=== PATIENT | female | born 1985 | race Caucasian/White ===

== ENCOUNTER → 2021-03-08 08:28 | Outpatient (CLI) | payer OTHER, SELFPAY ==
[2021-03-08 08:55] LABS: Appearance Urine UA CLEAR; Bilirubin Urine UA NEGATIVE (NEGATIVE); Color Urine UA YELLOW; Glucose Urine UA NEGATIVE (Negative); Ketones Urine UA NEGATIVE (NEGATIVE); Leukocyte Esterase Urine UA 1+ (NEGATIVE); Nitrite Urine UA NEGATIVE (Negative); Occult Blood Urine UA NEGATIVE (Negative); Protein Urine UA NEGATIVE (Negative); Specific Gravity Urine UA 1.015 (1.000-1.035); Urobilinogen Urine UA 0.2 E.U./dL (0.2)
[2021-03-08 09:13] LABS: Add Manual Diff / Slide Review NO; Basophils Absolute Auto 100 /uL (0-100); Basophils Percent Auto 0.8 % (0-2); Eosinophils Absolute Auto 0 /uL (0-450); Eosinophils Percent Auto 0.8 % (2-4); Hematocrit 36.7 % (36-46); Hemoglobin 12.4 g/dL (12.0-16.0); Lymphocytes Absolute Auto 1900 /uL (1100-4500); Lymphocytes Percent Auto 32.4 % (25-40); Mean Corpuscular HGB Conc 33.8 % (30-36); Mean Corpuscular Hemoglobin 31.3 PG (26-34); Mean Corpuscular Volume 92.7 fL (80-100); Monocytes Absolute Auto 400 /uL (0-900); Monocytes Percent Auto 6.2 % (3-14); Neutrophils Absolute Auto 3600 /uL (1500-7000); Neutrophils Percent Auto 59.8 % (50-75); Platelet Count 284 X10^3/uL (150-400); Red Blood Cell Count 3.96 X10^6/uL (4.0-5.2); Red Cell Distribution Width 11.9 % (11.6-14.8); White Blood Cell Count 5.9 X10^3/uL (4.5-11.0)
[2021-03-08 09:19] LABS: RBC Urine None Seen (0-5/HPF); Squamous Epithelial Cell Urine 10-30 /HPF (0-5/HPF); WBC Urine 0-1/HPF (0-5/HPF)
[2021-03-08 09:20] LABS: Bacteria Urine None Seen
[2021-03-09 06:11] LABS: Varicella IgG Antibody 1009 index (Immune >165)
[2021-03-09 06:36] LABS: RPR Screen Non Reactive (Non Reactive)
[2021-03-09 15:54] LABS: Hepatitis B Surface Antigen NEGATIVE s/c (NEGATIVE); Rubella Antibody IgG 91.1 IU/mL (>15)
[2021-03-09 16:11] LABS: HIV 1 & 2 Ab/Ag 4th Gen Combo NEGATIVE (NEGATIVE); Hep C Virus Ab w/Reflex Quant NEGATIVE s/c (NEGATIVE)
== END ==
PROVIDERS: PCP Physician Assistant; Referring Provider Obstetrics & Gynecology; Visit Provider Obstetrics & Gynecology
DX: O09.521 Supervision of elderly multigravida, first trimester (principal); Z36.0 Encounter for antenatal screening for chromosomal anomalies
CPT/HCPCS: 80055; 81003; 81015; 81420; 86787; 86803; 86850; 86900; 86901; 87086; 87389

== ENCOUNTER → 2021-04-19 10:45 | Outpatient (CLI) | payer OTHER, SELFPAY ==
[2021-04-22 21:23] LABS: AFP Value 25.5 ng/mL (.); Gest Age on Col Date 17.7 weeks (.); Insulin Dep Diabetes No (.); OSBR Risk 1IN 10000 (.); Results Report (.); Test Results *Screen Negative* (.)
== END ==
PROVIDERS: PCP Physician Assistant; Visit Provider Obstetrics & Gynecology
DX: Z34.02 Encounter for supervision of normal first pregnancy, second trimester (principal); Z3A.17 17 weeks gestation of pregnancy
CPT/HCPCS: 82105

== ENCOUNTER → 2021-05-15 10:47 | Outpatient (CLI) | payer OTHER, SELFPAY ==
--- NOTE | 2021-05-15 10:48 | DI.US.S_ITS ---
PROCEDURE: US OB >= 14 WEEKS FETUS INDICATIONS: ANATOMY OUTSIDE/PRIOR DATING DATA: Last menstrual period (LMP): Unknown LMP-based estimated date of delivery (MAME): Unknown. First dating scan (date and location): 02/16/2021, physician's office. Estimated date of delivery (MAME) from first dating scan: 09/25/2021. The calculations are made using the ultrasound MAME of 02/16/2021. TECHNIQUE: Real-time scanning was performed of the fetus, with image documentation and biometric measurements. Endovaginal scanning: Not performed COMPARISON: None. FINDINGS: General: A single living intrauterine gestation is present. Presentation: Vertex. Placenta: Placental position is fundal , without previa. Amniotic fluid index: 23.4 cm, normal range is 5-24 cm. heart rate: 155 beats per minute. Maternal cervical canal: 3.5 cm long. Normal lower limit is 2.5 cm. biometrics: Biparietal diameter: 5.3 cm, 22 weeks 0 days Head circumference: 18.3 cm, 20 weeks 5 days Abdominal circumference: 17.2 cm, 22 weeks 1 day Femur length: 3.5 cm, 21 weeks 0 days Clinically estimated gestational age: 21 weeks 0 days Composite gestational age from present scan: 21 weeks 3 days Estimated weight and percentile: 431 g, 74th percentile Anatomic survey: Neuro: Ventricles are non-dilated at less than 10 mm. Cisterna magna is normal at 3-11 mm. Cerebellum is normal in size and morphology. Nuchal skin fold: Normal at less than 6 mm between 14-21 weeks gestational age. Face: Nose and lips, facial profile are not well seen Spine: No evidence for spina bifida. Heart: 4-chambered heart is present, with normal ventricular outflow tracts. Diaphragm: Diaphragm is intact. Stomach: Left-sided stomach is present. Kidneys: No hydronephrosis. Normal is less than 5 mm in 2nd trimester, less than 7 mm in 3rd trimester. Cord: 3-vessel cord has orthotopic insertion. Bladder: Normal in size. Extremities: All 4 extremities identified. IMPRESSION: 1. Living 2nd trimester intrauterine . Current ultrasound age is 3 days greater than clinical age based on initial 1st trimester OB ultrasound. 2. profile and face and nose and lips are not well seen secondary to lie. 3. Top normal TERRY. Comment: Suggest patient return for repeat imaging of the profile and face and nose and lips. We strive to produce accurate, complete, and clear reports of imaging services. To assist us in improving patient care, this report was composed using standard report templates and voice recognition software. Therefore, it may contain abnormal punctuation, insertions and/or omissions. Occasional wrong-word or sound-alike substitutions may occur. Though we review the report and make efforts to correct it, we do recommend that the report be read carefully in proper context to recognize any text inaccuracies. Dictated by: Cholo Barrett M.D. on 05/15/2021 at 16:45 Approved by: Cholo Barrett M.D. on 05/15/2021 at 16:49
== END ==
PROVIDERS: PCP Physician Assistant; Referring Provider Obstetrics & Gynecology; Visit Provider Obstetrics & Gynecology
DX: Z34.02 Encounter for supervision of normal first pregnancy, second trimester (principal); Z3A.21 21 weeks gestation of pregnancy
CPT/HCPCS: 76811

== ENCOUNTER → 2021-09-11 12:37 | Outpatient (CLI) | payer OTHER, SELFPAY ==
[2021-09-14 02:57] LABS: Chlamydia trachomatis NAA Negative (Negative); Neisseria gonorrhoeae NAA Negative (Negative)
== END ==
PROVIDERS: PCP Physician Assistant; Referring Provider Family Medicine; Visit Provider Family Medicine
DX: O09.519 Supervision of elderly primigravida, unspecified trimester (principal)
CPT/HCPCS: 87491; 87591

== ENCOUNTER → 2021-12-27 11:56 | Outpatient (CLI) | payer OTHER, SELFPAY ==
[2021-12-27 20:47] LABS: Add Manual Diff / Slide Review NO; Basophils Absolute Auto 0 /uL (0-100); Basophils Percent Auto 0.7 % (0-2); Eosinophils Absolute Auto 100 /uL (0-450); Eosinophils Percent Auto 2.8 % (2-4); Hematocrit 36.4 % (36-46); Hemoglobin 12.5 g/dL (12.0-16.0); Lymphocytes Absolute Auto 2300 /uL (1100-4500); Lymphocytes Percent Auto 44.1 % (25-40); Mean Corpuscular HGB Conc 34.4 % (30-36); Mean Corpuscular Hemoglobin 30.9 PG (26-34); Mean Corpuscular Volume 89.6 fL (80-100); Monocytes Absolute Auto 400 /uL (0-900); Monocytes Percent Auto 6.8 % (3-14); Neutrophils Absolute Auto 2400 /uL (1500-7000); Neutrophils Percent Auto 45.6 % (50-75); Platelet Count 303 X10^3/uL (150-400); Red Blood Cell Count 4.07 X10^6/uL (4.0-5.2); Red Cell Distribution Width 12.7 % (11.6-14.8); White Blood Cell Count 5.2 X10^3/uL (4.5-11.0)
[2021-12-27 21:24] LABS: Ferritin 18 ng/mL (6-137)
[2021-12-27 22:59] LABS: HEMOLYSIS < 15 (0-50); Iron 126 ug/dL (37-170)
[2021-12-27 23:09] LABS: Percent Iron Saturation 37 % (15-50); Total Iron Binding Capacity 337 ug/dL (265-497); Transferrin 267 mg/dL (206-381)
[2021-12-27 23:31] LABS: TSH w/ Reflex to FT4 1.37 uIU/mL (0.47-4.68)
== END ==
PROVIDERS: PCP Physician Assistant; Visit Provider Physician Assistant
DX: R53.83 Other fatigue (principal)
CPT/HCPCS: 82728; 83540; 83550; 84443; 85025

== ENCOUNTER → 2022-01-09 11:32 | Outpatient (CLI) | payer OTHER, SELFPAY ==
--- NOTE | 2022-01-09 11:33 | DI.US.S_ITS ---
LIMITED ULTRASOUND OF RIGHT BREAST: 01/09/2022 CLINICAL: Palpable right breast lump. No prior exams were available for comparison. Real-time ultrasound of the right breast 6 o'clock region was performed. Hale scale images of the real-time examination were reviewed. No significant abnormalities were seen sonographically in the right breast. IMPRESSION: NEGATIVE There is no sonographic evidence of malignancy. There is no abnormality seen in the right breast to correspond with the palpable abnormality at 6 o'clock, however, clinical followup is recommended. Patient was offered further evaluation with diagnostic mammograms at the time of the ultrasound and declined. A 3 year screening mammogram is recommended. This exam was interpreted at Station ID: [id number]. Electronically Signed By: Joby do/janki:01/09/2022 12:13:24 letter sent: Clinical Evaluation Ultrasound BI-RADS: 1 Negative
== END ==
PROVIDERS: PCP Physician Assistant; Referring Provider Physician Assistant; Visit Provider Physician Assistant
DX: N63.10 Unspecified lump in the right breast, unspecified quadrant (principal)
CPT/HCPCS: 76642

== ENCOUNTER → 2023-07-03 10:51 | Outpatient (CLI) | payer OTHER, SELFPAY ==
[2023-07-03 20:32] LABS: Alanine Aminotransferase 21 IU/L (<35); Albumin 4.3 g/dL (3.5-5.0); Albumin Globulin Ratio 1.3 (1.0-2.8); Alkaline Phosphatase 58 U/L (38-126); Aspartate Aminotransferase 25 IU/L (14-36); BUN Creatinine Ratio 25.4 (6-22); Bilirubin Total 0.4 mg/dL (0.2-1.3); Blood Urea Nitrogen 16 mg/dL (7-17); Calcium 9.6 mg/dL (8.4-10.2); Carbon Dioxide 26 mmol/L (22-32); Chloride 101 mmol/L (98-107); Estimated Glomerular Filt Rate > 60 mL/min (>60); Globulin 3.2 g/dL (1.7-4.1); Glucose 81 mg/dL (70-100); HEMOLYSIS < 15 (0-50); Potassium 4.3 mmol/L (3.4-5.1); Sodium 136 mmol/L (137-145); Total Protein 7.5 g/dL (6.3-8.2)
[2023-07-03 20:34] LABS: Add Manual Diff / Slide Review NO; Basophils Absolute Auto 0 /uL (0-100); Eosinophils Absolute Auto 0 /uL (0-450); Eosinophils Percent Auto 0.6 % (2-4); Hematocrit 37.3 % (36-46); Hemoglobin 12.7 g/dL (12.0-16.0); Lymphocytes Absolute Auto 2200 /uL (1100-4500); Mean Corpuscular HGB Conc 34.1 % (30-36); Mean Corpuscular Volume 90.8 fL (80-100); Monocytes Absolute Auto 300 /uL (0-900); Monocytes Percent Auto 5.7 % (3-14); Neutrophils Absolute Auto 2400 /uL (1500-7000); Neutrophils Percent Auto 48.7 % (50-75); Platelet Count 305 X10^3/uL (150-400); Red Blood Cell Count 4.11 X10^6/uL (4.0-5.2); Red Cell Distribution Width 12.2 % (11.6-14.8)
[2023-07-03 20:50] LABS: Vitamin D 25 Hydroxy (D3) 44.1 ng/mL (30.0-100.0)
[2023-07-03 21:07] LABS: TSH w/ Reflex to FT4 0.94 uIU/mL (0.47-4.68)
[2023-07-03 21:21] LABS: Vitamin B12 683 pg/mL (239-931)
== END ==
PROVIDERS: PCP Physician Assistant; Visit Provider Physician Assistant
DX: Z31.89 Encounter for other procreative management (principal); L40.9 Psoriasis, unspecified; R53.83 Other fatigue
CPT/HCPCS: 80053; 82306; 82607; 84443; 85025

== ENCOUNTER → 2023-08-28 14:33 | Outpatient (CLI) | payer OTHER, SELFPAY ==
[2023-08-28 21:18] LABS: HCG Quantitative /Beta subunit 519.8 mIU/mL
== END ==
PROVIDERS: PCP Physician Assistant; Visit Provider Nurse Practitioner Adult Health
DX: O03.9 Complete or unspecified spontaneous abortion without complication (principal)
CPT/HCPCS: 84702

== ENCOUNTER 2023-08-29 18:16 | Emergency (ER) | payer OTHER, SELFPAY ==
[2023-08-29 18:29] VITALS: BP 126/67; PULSE 80; RESP 16; TEMP 37.4; O2SAT 97; BMI 25.1
--- NOTE | 2023-08-29 18:40 | DI.US.S_ITS ---
PROCEDURE: US PELVIC COMPLETE INDICATIONS: 5 DAYS POST SAB; POSSIBLE RPOC TECHNIQUE: Real-time scanning was performed of the pelvic organs, with image documentation. Additional endovaginal scanning was necessary due to incomplete visualization of the adnexal and endometrial structures by transabdominal scanning. COMPARISON: None. FINDINGS: Uterus: Uterus is anteverted and normal in size at 5.1 x 4.0 x 5.4 cm. The myometrium is homogeneous. The endometrium measures 8.0 mm combined thickness. There is a 1.3 x 0.7 x 1.3 cm mildly hypoechoic nonvascular solid mass in the endometrium which may represent a blood clot versus retained product of conception. There is a 1.1 x 1.4 x 1.8 cm right posterior intramural uterine fibroid. Moderate fluid-filled peristalsing bowel noted adjacent to the uterus. Ovaries: The right ovary measures 2.1 x 3.2 x 1.4 cm, with a calculated ovarian volume of 4.7 cc. The left ovary measures 2.9 x 1.8 x 1.1 cm, with a calculated ovarian volume of 3.1 cc. The ovaries have a normal sonographic appearance. Less than 12 follicles can be seen in each ovary. No adnexal masses are seen. Other: No pathologic free abdominal or pelvic fluid. IMPRESSION: 1. A 1.3 cm hypoechoic solid mass in the endometrium with minimal adjacent vascularity which may represent hemorrhagic products versus possible retained products of conception. Recommend continued clinical surveillance and follow-up imaging as indicated. 2. Otherwise, no acute abnormalities identified in the pelvis We strive to produce accurate, complete, and clear reports of imaging services. To assist us in improving patient care, this report was composed using standard report templates and voice recognition software. Therefore, it may contain abnormal punctuation, insertions and/or omissions. Occasional wrong-word or sound-alike substitutions may occur. Though we review the report and make efforts to correct it, we do recommend that the report be read carefully in proper context to recognize any text inaccuracies. Dictated by: Francois Mann M.D. on 08/29/2023 at 19:44 Approved by: Francois Mann M.D. on 08/29/2023 at 19:50
[2023-08-29 18:58] VITALS: PULSE 86; O2SAT 97
[2023-08-29 18:59] VITALS: BP 107/58; PULSE 79; O2SAT 97
[2023-08-29 19:00] VITALS: BP 110/59; PULSE 79; O2SAT 97
[2023-08-29 19:05] LABS: Add Manual Diff / Slide Review NO; Basophils Absolute Auto 0 /uL (0-100); Basophils Percent Auto 0.2 % (0-2); Eosinophils Absolute Auto 0 /uL (0-450); Eosinophils Percent Auto 0.7 % (2-4); Hematocrit 35.7 % (36-46); Hemoglobin 12.5 g/dL (12.0-16.0); Lymphocytes Absolute Auto 700 /uL (1100-4500); Lymphocytes Percent Auto 9.7 % (25-40); Mean Corpuscular Hemoglobin 31.7 PG (26-34); Mean Corpuscular Volume 90.6 fL (80-100); Monocytes Absolute Auto 600 /uL (0-900); Monocytes Percent Auto 8.8 % (3-14); Neutrophils Absolute Auto 5700 /uL (1500-7000); Neutrophils Percent Auto 80.6 % (50-75); Platelet Count 244 X10^3/uL (150-400); Red Blood Cell Count 3.94 X10^6/uL (4.0-5.2); Red Cell Distribution Width 12.3 % (11.6-14.8); White Blood Cell Count 7.1 X10^3/uL (4.5-11.0)
[2023-08-29 19:15] LABS: Alanine Aminotransferase 28 IU/L (<35); Albumin 4.2 g/dL (3.5-5.0); Albumin Globulin Ratio 1.2 (1.0-2.8); Alkaline Phosphatase 56 U/L (38-126); Aspartate Aminotransferase 31 IU/L (14-36); BUN Creatinine Ratio 9.8 (6-22); Bilirubin Total 0.5 mg/dL (0.2-1.3); Blood Urea Nitrogen 5 mg/dL (7-17); Calcium 8.1 mg/dL (8.4-10.2); Carbon Dioxide 19 mmol/L (22-32); Chloride 109 mmol/L (98-107); Estimated Glomerular Filt Rate > 60 mL/min (>60); Globulin 3.4 g/dL (1.7-4.1); Glucose 113 mg/dL (70-100); HEMOLYSIS < 15 (0-50); Potassium 3.2 mmol/L (3.4-5.1); Sodium 135 mmol/L (137-145); Total Protein 7.6 g/dL (6.3-8.2)
--- NOTE | 2023-08-29 19:25 | ED_ITS ---
HPI - Abdominal Pain General Chief Complaint: Abdominal Pain Stated Complaint: fever, recent miscarriage, abd pain Time Seen by Provider: 08/29/23 19:19 History of Present Illness HPI narrative: One week ago today she started some spotting and then heavy bleeding and passage of products of conception last Saturday. Quite a bit of cramping which resolved after the passage of material. She was about 8 weeks . 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 She went had that ultrasound was reassuring by her report. Subsequent to that over the past few days she has had copious watery diarrhea and fever. No nausea no vomiting and mild abdominal cramps which are diffuse. In speaking with her provider today with recurrent fever, it was felt that further evaluation was warranted. To make sure she does not have endometritis. Related Data Home Medications Medication Instructions Recorded Confirmed L.acidoph, paracasei,B. lactis 10 cell PO 02/08/21 08/12/23 billion cell capsule (Digestive Advantage Advanced Probiotic) prenat.vits,markie,[id number] 1 tab PO DAILY 02/08/21 08/12/23 blue-green algae (Spirulina) 500 mg PO 07/01/23 08/12/23 mg capsule choline 250 mg tablet mg PO 07/01/23 08/12/23 coenzyme Q10 100 mg capsule 100 mg PO DAILY 07/01/23 08/12/23 (CoQ-10) docosahexaenoic acid 200 mg mg PO 07/01/23 08/12/23 capsule ( DHA) liver extract tab PO 07/01/23 08/12/23 Allergies Allergy/AdvReac Type Severity Reaction Status Date / Time salicylic acid AdvReac Mild Rash as a Verified 08/12/23 11:44 Teenager Patient History Medical History (Updated 08/29/23 @ 19:45 by Barrett Lovett MD) Spontaneous miscarriage Wears glasses Carpal tunnel syndrome (~2001) Chicken pox (~1988) Abnormal Pap smear of cervix Hx of migraines (~1995) Psoriasis (~2002) AMA (advanced maternal age) primigravida 35+ Low back pain Anxiety (~2002) Surgical History (Updated 02/08/21 @ 11:47 by Kamini Rubalcava RN) Hx of colposcopy with cervical biopsy [place] teeth extracted (~2003) Family History (Updated 02/18/21 @ 22:13 by Eli Ramirez) Father Depression Hypertension Hx TIA/stroke w/o resid H/O Spinal surgery Encounter for cholecystectomy Retinal tear Mental health problem Mother Osteoarthritis Mitral valve prolapse Vitiligo Hyperlipidemia Hypertension Rectal polyp Grandfather Cancer Lung cancer Brain cancer Smoker Chemical exposure Grandmother Cerebral hemorrhage Fall Depression Gallbladder disease Miscarriage Grandfather Brain cancer Cancer Lung cancer Smoker Grandmother Depression Atrial fibrillation Allergies Brother Allergies Sister Mitral valve prolapse Sister Anxiety Social History marital status: unmarried,living together number of children: 0 household members: significant other lives independently: Yes caregiver/support person: No pets and animals: No (Have been house-sitting a cat for the last 1.5 months) education level: college occupational status: employed current occupational exposures/hazards: No special madisyn needs: No Smoking Status: Former smoker quit status: quit date established second hand exposure: No (FOB is a smoker and aware.) alcohol intake: former substance use type: does not use and marijuana Smoking Status: Former smoker Exam Narrative Exam Narrative: GENERAL: Alert, cooperative and in no distress. HEAD: Atraumatic. Normocephalic. EYES: Sclera are clear without icterus. Extraocular movements are full. ENT: No rhinorrhea. Oropharynx is moist. Mouth exam is benign. NECK: Supple. Full range of motion. CARDIOVASCULAR: Normal heart rate RESPIRATORY: No respiratory distress GASTROINTESTINAL: Abdomen soft, non-tender, nondistended. Specifically no lower pelvic tenderness to deep palpation. EXTREMITIES: No edema, full range of motion. No obvious trauma. NEURO: Nonfocal examination, normal speech, normal gait. SKIN: No rash or erythema of visible areas PSYCH: Normally oriented. Normal range of affect. Appropriate behavior Initial Vital Signs Initial Vital Signs: Vital Signs Temperature 99.4 F 08/29/23 18:29 Pulse Rate 80 08/29/23 18:29 Respiratory Rate 16 08/29/23 18:29 Blood Pressure 126/67 08/29/23 18:29 Pulse Oximetry 97 08/29/23 18:29 Oxygen Delivery Method Room Air 08/29/23 18:29 Course Orders Ordered: ED Orders 08/29/23 18:40 US pelvic complete Stat 08/29/23 18:49 Blood Culture Stat Complete Blood Count AUTO DIFF Stat Comprehensive Metabolic Panel Stat HCG Quantitative /Beta subunit Stat Type and Screen Stat Vital Signs Vital signs: Vital Signs - 8 hr 08/29/23 18:29 Temperature 99.4 F Pulse Rate 80 Respiratory Rate 16 Blood Pressure 126/67 Pulse Oximetry 97 Oxygen Delivery Method Room Air MDM - Abdominal Pain Lab Data 08/29/23 18:49 08/29/23 18:49 Labs: Lab Results 08/29/23 Range/Units 18:49 WBC 7.1 (4.5-11.0) X10^3/uL RBC 3.94 L (4.0-5.2) X10^6/uL Hgb 12.5 (12.0-16.0) g/dL Hct 35.7 L (36-46) % MCV 90.6 (80-100) fL MCH 31.7 (26-34) PG MCHC 35.0 (30-36) % RDW 12.3 (11.6-14.8) % Plt Count 244 (150-400) X10^3/uL Neut % (Auto) 80.6 H (50-75) % Lymph % (Auto) 9.7 L (25-40) % Mcdonald % (Auto) 8.8 (3-14) % Eos % (Auto) 0.7 L (2-4) % Baso % (Auto) 0.2 (0-2) % Neut # (Auto) 5700 (4510-4126) /uL Lymph # (Auto) 700 L (6330-3867) /uL Mcdonald # (Auto) 600 (0-900) /uL Eos # (Auto) 0 (0-450) /uL Baso # (Auto) 0 (0-100) /uL Sodium 135 L (137-145) mmol/L Potassium 3.2 L (3.4-5.1) mmol/L Chloride 109 H (98-107) mmol/L Carbon Dioxide 19 L (22-32) mmol/L BUN 5 L (7-17) mg/dL Creatinine 0.51 L (0.52-1.04) mg/dL Estimated GFR > 60 (>60) mL/min BUN/Creatinine Ratio 9.8 (6-22) Glucose 113 H (70-100) mg/dL Calcium 8.1 L (8.4-10.2) mg/dL Total Bilirubin 0.5 (0.2-1.3) mg/dL AST 31 (14-36) IU/L ALT 28 (<35) IU/L Alkaline Phosphatase 56 (38-126) U/L Total Protein 7.6 (6.3-8.2) g/dL Albumin 4.2 (3.5-5.0) g/dL Globulin 3.4 (1.7-4.1) g/dL Albumin/Globulin Ratio 1.2 (1.0-2.8) HCG, Quant 295.9 mIU/mL Blood Type B Positive Antibody Screen Negative Point of care testing: Point of Care Testing Test Results Positive Urine Dip Bedside Urine Glucose Negative Bedside Urine Bilirubin - Negative Bedside Urine Ketone - Negative Urine Specific Sheldon 1.010 Bedside Urine Occult Blood +/- Bedside Urine pH 6.0 Bedside Urine Protein - Negative Bedside Urine Urobilinogen - Negative Bedside Urine Nitrite - Negative Bedside Urine Leukocytes - Negative Esterase MDM Narrative Medical decision making narrative: Our ultrasound here shows a 1.3 cm mass in the mid section of the uterus which could be clot. Patient reports a negative ultrasound earlier this week so I think clot is more likely. She has a benign abdominal exam and no white count and no fever for us I think watchful waiting is safe and appropriate. I did have a detailed discussion with her about consultation with gynecology for indications for D&C but the patient is comfortable with watchful waiting for now. Discharge Plan Departure Patient Disposition: Home Clinical Impression: Diarrhea, Incomplete Instructions: Diarrhea, DI for Miscarriage Activity Restrictions/Additional Instructions: We discussed in detail the risks and benefits of going home and agree that it is reasonable to see how things work their way out over the next hours and days. Reviewing the ultrasound again it could just be that you have a blood clot in the uterus which of course would not be dangerous at all. For now I recommend antidiarrheal medicine Imodium 1 tablet every time you have a watery stool. You can take Tylenol or ibuprofen as needed for pain. Follow-up right away if you feel like you are getting seriously ill with fever chills sweats prostration difficulty ambulating or repeated vomiting. Otherwise, follow-up with your provider in the next couple of days for recheck. Prescriptions: No Action prenat.vits,markie,[id number] Tablet 1 tab PO DAILY Digestive Advantage Advanced 10 billion cell capsule PO DHA 200 mg capsule PO Rx Instructions: 1000 mg once coenzyme Q10 [CoQ-10] 100 mg capsule 100 mg PO DAILY choline 250 mg tablet PO blue-green algae (Spirulina) 500 mg capsule PO Rx Instructions: 3000 mg once a day liver extract Tablet PO Rx Instructions: 3000 mg once Referrals: Pamela Kwok PA-C [Primary Care Provider] - Stand Alone Forms: Patient Portal/API
[2023-08-29 19:30] VITALS: BP 113/61; PULSE 79; TEMP 36.9; O2SAT 97
[2023-08-29 19:33] LABS: HCG Quantitative /Beta subunit 295.9 mIU/mL
[2023-08-29 19:51] VITALS: BP 113/61; PULSE 78; O2SAT 97
== END 2023-08-29 19:54 | disposition home or self-care (01) ==
PROVIDERS: Emergency Provider Family Medicine Addiction Medicine; PCP Physician Assistant
DX: O03.4 Incomplete spontaneous abortion without complication (principal); R19.7 Diarrhea, unspecified
CPT/HCPCS: 36415; 76830; 76856; 80053; 81003; 81025; 84702; 85025; 86850; 86900; 86901; 87040; 99283; 99284

== ENCOUNTER → 2023-09-04 13:26 | Outpatient (CLI) | payer OTHER, SELFPAY ==
[2023-09-04 20:05] LABS: HCG Quantitative /Beta subunit 52.5 mIU/mL
== END ==
LOC: LAB 13:27
PROVIDERS: PCP Physician Assistant; Visit Provider Nurse Practitioner Adult Health
DX: O03.9 Complete or unspecified spontaneous abortion without complication (principal)
CPT/HCPCS: 84702

== ENCOUNTER → 2023-09-25 13:00 | Outpatient (CLI) | payer OTHER, SELFPAY ==
[2023-09-25 21:12] LABS: Add Manual Diff / Slide Review NO; Basophils Absolute Auto 100 /uL (0-100); Basophils Percent Auto 0.9 % (0-2); Eosinophils Absolute Auto 100 /uL (0-450); Eosinophils Percent Auto 1.5 % (2-4); Hematocrit 36.4 % (36-46); Hemoglobin 12.3 g/dL (12.0-16.0); Lymphocytes Absolute Auto 2700 /uL (1100-4500); Lymphocytes Percent Auto 38.6 % (25-40); Mean Corpuscular HGB Conc 33.9 % (30-36); Mean Corpuscular Hemoglobin 31.1 PG (26-34); Mean Corpuscular Volume 91.8 fL (80-100); Monocytes Absolute Auto 400 /uL (0-900); Monocytes Percent Auto 5.1 % (3-14); Neutrophils Absolute Auto 3700 /uL (1500-7000); Neutrophils Percent Auto 53.9 % (50-75); Platelet Count 298 X10^3/uL (150-400); Red Blood Cell Count 3.97 X10^6/uL (4.0-5.2); Red Cell Distribution Width 13.3 % (11.6-14.8)
[2023-09-25 21:25] LABS: HCG Quantitative /Beta subunit < 2.4 mIU/mL
[2023-09-25 21:29] LABS: Progesterone, Total 4.69 ng/mL
[2023-09-25 21:42] LABS: TSH w/ Reflex to FT4 1.18 uIU/mL (0.47-4.68)
[2023-09-25 21:43] LABS: Ferritin 17 ng/mL (6-137)
== END ==
PROVIDERS: PCP Physician Assistant; Visit Provider Nurse Practitioner Adult Health
DX: O03.9 Complete or unspecified spontaneous abortion without complication (principal)
CPT/HCPCS: 82728; 84144; 84443; 84702; 85025

== ENCOUNTER → 2023-09-30 10:54 | Outpatient (CLI) | payer OTHER, SELFPAY ==
[2023-09-30 20:10] LABS: Add Manual Diff / Slide Review NO; Basophils Absolute Auto 100 /uL (0-100); Basophils Percent Auto 1.1 % (0-2); Eosinophils Absolute Auto 100 /uL (0-450); Eosinophils Percent Auto 1.4 % (2-4); Hematocrit 35.8 % (36-46); Hemoglobin 12.3 g/dL (12.0-16.0); Lymphocytes Absolute Auto 2100 /uL (1100-4500); Lymphocytes Percent Auto 36.6 % (25-40); Mean Corpuscular HGB Conc 34.3 % (30-36); Mean Corpuscular Hemoglobin 31.2 PG (26-34); Mean Corpuscular Volume 90.9 fL (80-100); Monocytes Absolute Auto 400 /uL (0-900); Monocytes Percent Auto 6.2 % (3-14); Neutrophils Absolute Auto 3200 /uL (1500-7000); Neutrophils Percent Auto 54.7 % (50-75); Platelet Count 300 X10^3/uL (150-400); Red Blood Cell Count 3.94 X10^6/uL (4.0-5.2); Red Cell Distribution Width 13.1 % (11.6-14.8); White Blood Cell Count 5.8 X10^3/uL (4.5-11.0)
[2023-09-30 20:32] LABS: Alanine Aminotransferase 17 IU/L (<35); Albumin 4.5 g/dL (3.5-5.0); Albumin Globulin Ratio 1.5 (1.0-2.8); Alkaline Phosphatase 64 U/L (38-126); Aspartate Aminotransferase 26 IU/L (14-36); BUN Creatinine Ratio 30.9 (6-22); Bilirubin Total 0.4 mg/dL (0.2-1.3); Blood Urea Nitrogen 17 mg/dL (7-17); Calcium 9.8 mg/dL (8.4-10.2); Carbon Dioxide 24 mmol/L (22-32); Chloride 108 mmol/L (98-107); Estimated Glomerular Filt Rate > 60 mL/min (>60); Glucose 92 mg/dL (70-100); HEMOLYSIS < 15 (0-50); Potassium 4.2 mmol/L (3.4-5.1); Sodium 139 mmol/L (137-145); Total Protein 7.5 g/dL (6.3-8.2)
== END ==
PROVIDERS: PCP Physician Assistant; Visit Provider Physician Assistant
DX: D64.9 Anemia, unspecified (principal); R53.83 Other fatigue; Z87.898 Personal history of other specified conditions
CPT/HCPCS: 80053; 83735; 85025

== ENCOUNTER → 2023-10-08 07:10 | Outpatient (CLI) | payer OTHER, SELFPAY | PROVIDERS: PCP Physician Assistant; Visit Provider Physician Assistant | DX: D64.9 Anemia, unspecified (principal); R53.83 Other fatigue | CPT/HCPCS: 82274 ==

== ENCOUNTER → 2023-10-21 11:12 | Outpatient (CLI) | payer OTHER, SELFPAY | PROVIDERS: PCP Physician Assistant; Visit Provider Nurse Practitioner Adult Health | DX: O03.9 Complete or unspecified spontaneous abortion without complication (principal) | CPT/HCPCS: 84144 ==